=== PATIENT | female | born 2000 | race Caucasian/White ===

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

== ENCOUNTER 2018-02-26 09:15 | Emergency (ER) | payer OTHER ==
[2015-04-06 23:56] VITALS: BP 130/68
[2018-03-01 11:58] LABS: COLOR,URINE YELLOW (YELLOW)
[2018-03-01 11:59] LABS: APPEARANCE,URINE CLOUDY (CLEAR); OCCULT BLOOD,URINE 2+ (NEGATIVE); UROBILINOGEN URINE 0.2 Eu (0.2-1.0)
== END 2018-02-26 09:40 | disposition home or self-care (01) ==
LOC: ED 09:15
DX: N39.0 Urinary tract infection, site not specified (principal)
CPT/HCPCS: 81002; 87086; 99282

== ENCOUNTER 2018-12-17 15:30 | Outpatient (CLI) | payer OTHER ==
[2015-04-06 23:56] VITALS: BP 130/68
== END 2018-12-17 15:40 ==
LOC: LABRHC 15:30
PROVIDERS: ATTEND Family Medicine
DX: N39.0 Urinary tract infection, site not specified (principal); B96.20 Unspecified Escherichia coli [E. coli] as the cause of diseases classified elsewhere; B95.2 Enterococcus as the cause of diseases classified elsewhere
CPT/HCPCS: 87086